=== PATIENT | female | born 1995 | race Caucasian/White ===

== ENCOUNTER 2018-05-07 21:45 | Emergency (ER) | payer MEDICAID, OTHER ==
--- NOTE | 2018-05-07 22:00 | EDM.PDOC ---
ED HPI GENERAL MEDICAL PROBLEM - General Chief Complaint: Abdominal Pain Stated Complaint: LEFT LOWER ABDOMINAL PAIN Time Seen by Provider: 05/07/18 21:59 Source of Information: Reports: Patient History Limitations: Reports: No Limitations - History of Present Illness INITIAL COMMENTS - FREE TEXT/NARRATIVE: 23-year-old female presents the ED with acute onset of left lower quadrant abdominal pain at 0200 hrs. this morning while she was at work at [employer]. Heme on relatively quickly and out of the blue. By the time she was done her shift the pain was worsening in her left lower quadrant and feeling a little bit in her lower back as well. bowel did work normally today with no diarrhea. She can eat normally she has no nausea vomiting. No fever or chills. No genitourinary complaints. She states her period is due any day now. Denies any possibility of . No previous abdominal surgeries. He states it hurts to walk and move. She is able to localize the area pain very well to the left lower quadrant just above the inguinal ligament. BP is mildly elevated at 148/ 91. Mildly tachycardic at 101. Afebrile at 36.1. O2 sats are 98% on room air Onset: Today Onset Date: 05/07/18 Onset Time: 02:00 Duration: Hour(s): Location: Reports: Abdomen (Left lower quadrant of the abdomen.) Quality: Reports: Ache, Other (Constant pain which she rates as 6 or 7 out of 10 with perhaps a very mild colicky component.) Severity: Moderate (810) Improves with: Reports: Rest Worsens with: Reports: Other, Movement Context: Reports: Other (Sudden spontaneous occurrence.). Denies: Activity ( Walking coughing or sneezing makes it worse), Exercise, Lifting, Sick Contact, Trauma Associated Symptoms: Reports: No Other Symptoms. Denies: Cough, cough w sputum , Diaphoresis, Fever/Chills, Headaches, Loss of Appetite, Malaise, Nausea/ Vomiting, Rash, Seizure, Shortness of Breath, Syncope, Weakness Treatments BOBBIN [employer]ER: Reports: Other (see below) (None.) Left Lower Abdominal Pain Score (Numeric/FACES): 6 - Related Data Allergies Allergy/AdvReac Type Severity Reaction Status Date / Time cefadroxil [From Duricef] Allergy Cannot Verified 05/07/18 21:55 Remember Penicillins Allergy Cannot Verified 05/07/18 21:54 Remember Sulfa (Sulfonamide Allergy Cannot Verified 05/07/18 21:54 Antibiotics) Remember Home Meds: Home Meds . [No Known Home Meds] 05/07/18 [History] Social & Family History - Living Situation & Occupation Living situation: Reports: Single Occupation: Employed ED ROS GENERAL - Review of Systems Review Of Systems: See Below Constitutional: Denies: Fever, Malaise, Weakness, Fatigue, Weight Loss HEENT: Reports: No Symptoms Respiratory: Reports: No Symptoms Cardiovascular: Reports: No Symptoms Endocrine: Reports: No Symptoms GI/Abdominal: Reports: Abdominal Pain. Denies: Constipation (Left lower quadrant starting at 2:00 this morning and persisting. See history of present illness), Diarrhea, Decreased Appetite, Difficulty Swallowing, Hematemesis, Hematochezia, Melena, Stool Incontinence, Vomiting, Other : Reports: No Symptoms Musculoskeletal: Reports: No Symptoms Skin: Reports: No Symptoms Neurological: Reports: No Symptoms Psychiatric: Reports: No Symptoms Hematologic/Lymphatic: Reports: No Symptoms Immunologic: Reports: No Symptoms ED EXAM, GI/ABD - Physical Exam Exam: See Below Exam Limited By: No Limitations General Appearance: Alert, WD/WN, Mild Distress (Especially when moving from the gurney standing up and lying down.) Eyes: Bilateral: Normal Appearance (No scleral icterus) Throat/Mouth: Normal Inspection, Normal Lips, Normal Teeth, Normal Oropharynx Head: Atraumatic, Normocephalic Neck: Normal Inspection, Supple, Non-Tender, Full Range of Motion. No: Lymphadenopathy (L), Lymphadenopathy (R) Respiratory/Chest: No Respiratory Distress, Lungs Clear, Normal Breath Sounds, No Accessory Muscle Use Cardiovascular: Normal Peripheral Pulses, Regular Rate, Rhythm, No Edema, No Gallop, No Murmur, No Rub GI/Abdominal Exam: Normal Bowel Sounds, Soft, No Organomegaly, No Abnormal Bruit , Pelvis Stable, Tender (Tenderness is well localized to the left lower quadrant just above the inguinal ligament with guarding and rebound.) Back Exam: Normal Inspection, Full Range of Motion. No: CVA Tenderness (L), CVA Tenderness (R) Extremities: Normal Inspection, Normal Range of Motion, Non-Tender, No Pedal Edema Neurological: Alert, Oriented, CN II-XII Intact, Normal Cognition Psychiatric: Normal Affect, Normal Mood Skin Exam: Warm, Dry, Intact, Normal Color, No Rash Course - Vital Signs Last Recorded V/S: Last Vital Signs Temp 36.1 C 05/07/18 21:55 Pulse 101 H 05/07/18 21:55 Resp 16 05/07/18 21:55 BP 148/91 H 05/07/18 21:55 Pulse Ox 98 05/07/18 21:55 - Orders/Labs/Meds Labs: Laboratory Tests 05/07/18 05/07/18 05/07/18 Range/Units 22:17 22:17 22:17 WBC 9.11 (3.98-10.04) K/mm3 RBC 5.14 (3.98-5.22) M/mm3 Hgb 14.4 (11.2-15.7) gm/L Hct 43.8 (34.1-44.9) % MCV 85.2 (79.4-94.8) fl MCH 28.0 (25.6-32.2) pg MCHC 32.9 (32.2-35.5) g/dl RDW Std Deviation 41.7 (36.4-46.3) fL Plt Count 367 (182-369) K/mm3 MPV 8.7 L (9.4-12.3) fl Neutrophils % (Manual) 50 (40-60) % Band Neutrophils % 0 (0-10) % Lymphocytes % (Manual) 45 H (20-40) % Atypical Lymphs % 0 % Monocytes % (Manual) 2 (2-10) % Eosinophils % (Manual) 0 L (0.7-5.8) % Basophils % (Manual) 3 H (0.1-1.2) Platelet Estimate Adequate Plt Morphology Comment Normal RBC Morph Comment Normal Sodium 140 (136-145) mEq/L Potassium 3.6 (3.5-5.1) mEq/L Chloride 102 (98-107) mEq/L Carbon Dioxide 28 (21-32) mEq/L Anion Gap 13.6 (5-15) BUN 10 (7-18) mg/dL Creatinine 0.8 (0.55-1.02) mg/dL Est Cr Clr Drug Dosing 104.54 mL/min Estimated GFR (MDRD) > 60 (>60) mL/min BUN/Creatinine Ratio 12.5 L (14-18) Glucose 89 (74-106) mg/dL Calcium 10.0 (8.5-10.1) mg/dL Total Bilirubin 0.4 (0.2-1.0) mg/dL AST 26 (15-37) U/L ALT 33 (14-59) U/L Alkaline Phosphatase 93 (46-116) U/L C-Reactive Protein 1.8 H* (<1.0) mg/dL Total Protein 8.3 H (6.4-8.2) g/dl Albumin 4.0 (3.4-5.0) g/dl Globulin 4.3 gm/dL Albumin/Globulin Ratio 0.9 L (1-2) HCG, Qual Negative (NEGATIVE) Meds: Medications Discontinued Medications Generic Name Dose Route Start Last Admin Trade Name Du PRN Reason Stop Dose Admin Dicyclomine HCl 20 mg 05/07/18 23:42 05/07/18 23:55 Bentyl PO 05/07/18 23:43 20 mg ONETIME ONE Administration Hydromorphone HCl 0.5 mg 05/07/18 22:05 05/07/18 22:21 Dilaudid IVPUSH 05/07/18 22:06 0.5 mg ONETIME ONE Administration Dextrose/Sodium Chloride 1,000 mls @ 150 mls/hr 05/07/18 22:15 05/07/18 22:46 Dextrose 5%-Normal Saline IV 999 mls/hr ASDIRECTED MARIAN Infusion Magnesium Citrate 240 ml 05/07/18 23:42 05/07/18 23:54 Citrate Of Magnesia PO 05/07/18 23:43 240 ml ONETIME ONE Administration Metoclopramide HCl 7.5 mg 05/07/18 22:06 05/07/18 22:21 Reglan IVPUSH 05/07/18 22:07 7.5 mg ONETIME ONE Administration - Radiology Interpretation Free Text/Narrative:: 23-year-old female attends the ED with persistent left lower quadrant abdominal pain that started about 0200 hrs. this morning while she was at work. She states pain came on fairly quickly and has progressed intensity over the last 5- 10 hours. It is constant with perhaps a very minimal colicky component. Pain is very well localized to the left lower quadrant of the abdomen nearly in the pelvis. During without rebound tenderness. She is afebrile. Plan routine labs to be done including CRP and a beta hCG. Urinalysis. IV will be D5 normal saline at 150 mils per hour. Dilaudid 0.5 mg IV with Reglan 7.5 mg IV for pain relief. - Re-Assessments/Exams Free Text/Narrative Re-Assessment/Exam: 05/07/18 22:45 Total white count is 9.11 with 50% neutrophils and no band cells reported. Hemoglobin is 14.4 with hematocrit of 43.8. Platelet count is 67,000. Sodium 140 with potassium of 3.6. Chloride 102 with a bicarbonate of 28. Anion gap is 13.6. BUN is 10 with a creatinine of 0.8. GFR remains greater than 60. Glucose is 89. Calcium is 10.0. Liver function is normal. C-reactive protein mildly elevated at 1.8. Total protein is 8.3 with albumin fraction of 4.0. Serum Beta hCG is negative 05/07/18 23:07 KUB reveals increased stool throughout the right hemicolon and portions of the transverse colon and descending colon. However the left lower quadrant and rectal vault are empty. On reexamination she remains very tender left lower quadrant of the abdomen. Going to proceed with CT of the abdomen per renal protocol without contrast. Olga is about 3 out of 10 at present after IV analgesia. 05/07/18 23:43 CT of the abdomen and pelvis has been completed per renal protocol without any contrast. Visualized portions of the lungs are clear. Cardiac silhouette is normal. Liver and gallbladder are normal with no calcified gallstones. Pancreas appears normal. Both kidneys are well-visualized and ureters show no sign of obstruction although down to the urinary bladder which also appears normal. Stomach and spleen appear normal as well. Adrenal glands appear normal. However large bowel however does show a fair amount of stool throughout the entire colon including the rectal vault was which was not all that apparent on plain films. Both ovaries are easily visualized and show no cystic formation or free fluid in the pelvis. There is one area along the sigmoid colon that is a little hazy with no associated diverticula. Will wait for [facility] report. Plan she'll be treated with Bentyl 20 mg by mouth. She will take oral lesions citrate 8 ounces by mouth for 6 ounces of juice of choice to provide bowel cleanse. She is to return to medical care if not markedly improved after bowel cleanse in 12 hours time. 05/08/18 01:25: Patient was discharged home on before the [facility]- [facility] report returned. They agree with my findings but do mention inflammatory changes anterior to the distal descending colon in the left lower quadrant with no associated colonic wall thickening. Small bowel is also unremarkable. Appendix is visualized and unremarkable. These findings according to the radiologist suggest possible epiploic appendage-itis is an omental infarct adjacent to the distal descending colon. I will therefore discuss these findings with the patient later this morning at a more appropriate hour and see how she is doing in terms of bowel cleanse and persistent pain. She may need analgesia for 3 or 4 days if she has an epiploic appendagitis. 05/08/18 08:34 I tried to call this patient twice on her cell phone or home phone and was no answer. I did leave a message on phone to call back if she continues to have left lower quadrant abdominal pain. Is also unable to reach her mother who she left as a provider and phone number as well as her spouse Lilo Christie. I was not able to reach any of the 3 persons. Departure - Departure Time of Disposition: 23:45 Disposition: Home, Self-Care 01 Condition: Fair Clinical Impression: Constipation by delayed colonic transit, Epiploic appendagitis Abdominal pain Qualifiers: Abdominal location: left lower quadrant Qualified Code(s): R10.32 - Left lower quadrant pain - Discharge Information *PRESCRIPTION DRUG MONITORING PROGRAM REVIEWED*: Not Applicable *COPY OF PRESCRIPTION DRUG MONITORING REPORT IN PATIENT KIKO: Not Applicable Instructions: Constipation, Adult, Abdominal Pain, Adult, [id number] Referrals: PCP,None [Primary Care Provider] - Forms: ED Department Discharge, ED Return to Work/School Form Additional Instructions: Evaluation in the emergency room tonight due to persistent left lower quadrant abdominal pain that started at work around 0200 hrs. this morning. Examination reveals pain well localized to the left lower quadrant of the abdomen near the pelvis. Lab tests revealed no abnormalities in terms of any signs of infection. Plain film of the abdomen showed increased stool throughout the right hemicolon and portions of the transverse colon. You're treated with intravenous fluids and pain medication Dilaudid 0.5 mg with Reglan 7.5 mg IV. You're given Bentyl 20 mg by mouth before discharge from the ED. Since the pain was not explained with the above tests a CT of her abdomen was performed without any contrast to make sure there was no kidney stone or obvious problem with the left ovary. This test also proved to be negative for any abnormalities of the kidneys or ureters or ovaries. He did reveal increased stool throughout most of the colon including the rectal vault and left lower quadrant which I believe to be the cause of your pain. For constipation is the major problem causing your current pain syndrome. Treatment is bowel cleanse with magnesium citrate 8 ounces to be taken by mouth with 6 ounces of juice of choice or Gatorade/ Powerade. This usually starts to work in 1-2 hours and the bowels will usually move 3 or 4 times often ending with mild diarrhea. This should provide relief of your abdominal pain. However the pain is not better or seems to worsen over the next 12-24 hours you are to return to the ED.
[2018-05-07] MEDS ORDERED: HYDROmorphone 1 MG/ML Syringe IVPUSH ONE (22:05)
[2018-05-07] MEDS ORDERED: Metoclopramide 10 MG/2 ML SDV IVPUSH ONE (22:06)
[2018-05-07] MEDS ORDERED: Dextrose 5%-0.9% NaCl 1,000 ML IV SCH (22:15)
[2018-05-07] MEDS ORDERED: Magnesium Citrate Solution 296 ML Bottle PO ONE (23:42)
[2018-05-07] MEDS ORDERED: Dicyclomine 10 MG Cap PO ONE (23:42)
--- NOTE | 2018-05-08 06:19 | CR ---
Abdomen: Supine view of the abdomen was obtained. Comparison: Prior abdominal study of 04/06/11. No abnormal calcifications are seen. Bowel gas pattern is normal. Bony structures are unremarkable. No abnormal soft tissue findings are seen. Impression: 1. Unremarkable supine abdominal x-ray. Diagnostic code #1
--- NOTE | 2018-05-08 06:58 | CT ---
CT abdomen and pelvis Technique: Multiple axial sections were obtained from above the dome of the diaphragm inferiorly through the pubic symphysis. Intravenous and oral contrast was not utilized. Study has been performed as a ureteral stone protocol. Findings: Small portion of the visualized lung bases show nothing acute. Noncontrast appearance of the liver appears within normal limits. Spleen also appears within normal limits. Adrenal glands show no nodule. Gallbladder contains no calcified gallstones. No discrete abnormality within the pancreas is seen. Kidneys show no abnormal calcifications. No ureteral dilatation or ureteral stone is seen. No bladder calculi are seen. Aorta shows no aneurysm. No retroperitoneal adenopathy or mesenteric abnormalities are seen. Appendix is seen which is normal. No pelvic mass or adenopathy is seen. No free fluid is identified. Very slight inflammatory change is noted along the anterior surface of the descending colon at its junction to the sigmoid region. No diverticuli are seen and findings most likely due to mild epiploic appendagitis. No additional inflammatory change is seen. No bowel dilatation is seen. Bone window settings were reviewed which appear within normal limits for the patient's age. Impression: 1. Slight inflammatory change next to the anterior descending colon at its junction to the sigmoid colon. As mentioned above, no diverticuli are seen in this area and findings are most likely due to epiploic appendagitis. 2. No additional abnormality is identified on noncontrast CT study of the abdomen and pelvis performed as a ureteral stone protocol. Diagnostic code #3 I agree with preliminary report from [facility], finalized on 05/08/18, 1:44 AM Central Time
== END 2018-05-07 23:58 | disposition home or self-care (01) ==
LOC: JD.ED 21:45
DX: K59.01 Slow transit constipation (principal); K63.89 Other specified diseases of intestine; Z88.2 Allergy status to sulfonamides; Z88.0 Allergy status to penicillin; Z88.1 Allergy status to other antibiotic agents
CPT/HCPCS: 36415; 74018; 74176; 80053; 84703; 85007; 85027; 86140; 96361; 96374; 96375; 99284; A9270; J1170; J2765; J7042

== ENCOUNTER 2025-01-25 23:01 | Emergency (ER) | payer OTHER ==
[2025-01-26] MEDS: methylPREDNISolone Sodium Succinate 125 MG/2 ML SDV IVPUSH ONE (00:24)
== END 2025-01-26 01:00 | disposition home or self-care (01) ==
LOC: JD.ED 23:01
DX: T78.40XA Allergy, unspecified, initial encounter (principal); Z88.0 Allergy status to penicillin; Z88.2 Allergy status to sulfonamides; Z88.8 Allergy status to other drugs, medicaments and biological substances; Z79.899 Other long term (current) drug therapy; X58.XXXA Exposure to other specified factors, initial encounter
CPT/HCPCS: 96374; 99283; J2919